=== PATIENT | female | born 1985 | race Caucasian/White ===

== ENCOUNTER 2018-11-09 21:43 | Emergency (ER) | payer SELFPAY ==
[~2018-11-09] VITALS: Ht 157.5 cm; Wt 56.7 kg
--- NOTE | 2018-11-09 21:59 | NUR ---
doppler tech at bedside
[2018-11-09 22:47] VITALS: BP 104/67
== END 2018-11-09 22:48 | disposition home or self-care (01) ==
LOC: ER 21:43
DX: M79.672 Pain in left foot (principal)
CPT/HCPCS: 93971; 99283